=== PATIENT | male | born 1990 | race Caucasian/White ===

== ENCOUNTER 2022-03-10 02:49 | Emergency (ER) | payer SELFPAY | END 2022-03-10 03:05 | LOC: ERS 02:49 | DX: Z02.89 Encounter for other administrative examinations (principal) | CPT/HCPCS: 99283 ==

== ENCOUNTER 2022-12-08 03:35 | Emergency (ER) | payer SELFPAY | END 2022-12-08 04:40 | LOC: ERS 03:35 | DX: Z02.89 Encounter for other administrative examinations (principal) ==